=== PATIENT | female | born 1970 | race Caucasian/White ===

== ENCOUNTER → 2016-08-04 | Outpatient (CLI) | payer SELFPAY ==
--- NOTE | 2016-08-05 11:06 | MY ---
EXAMINATION: Right digital diagnostic mammogram. HISTORY: Abnormal screening. Comparison is made to previous studies dated 07/21/2016. FINDINGS: A right ML view was obtained and spot compression images obtained in the MLO and CC projections. The previously demonstrated asymmetries within the subareolar to slightly outer right breast does no t persist with spot compression. This likely represents summation artifact. Otherwise no suspicious mass or calcification identified. IMPRESSION: BI-RADS category I - negative mammogram. Continued screening according to ACR-ACS guidelines agustina castaneda. THE FALSE-NEGATIVE RATE OF MAMMOGRAM IS APPROXIMATELY 10%. MANAGEMENT OF A PALPABLE ABNORMALITY MUST BE BASED UPON CLINICAL GROUNDS. SENSITIVITY FOR DETECTION OF ABNORMALITIES IN DENSE BREASTS IS LOW. NOTE: A letter will be sent to the patient regarding findings. [facility] -- KYLE Hanna [phone] - FAX [phone]
== END ==
LOC: MW.MAM 13:38
PROVIDERS: ATTEND Obstetrics & Gynecology
DX: R92.8 Other abnormal and inconclusive findings on diagnostic imaging of breast (principal)
CPT/HCPCS: 87086; G0206

== ENCOUNTER 2017-02-10 07:01 | Emergency (ER) | payer OTHER ==
[2017-02-10] MEDS ORDERED: Sodium Chloride 0.9% 2.5 ML Syringe FLUSH PRN (07:15)
[2017-02-10] MEDS ORDERED: Ondansetron 4 MG/2 ML SDV IVPUSH ONE (07:15)
[2017-02-10] MEDS ORDERED: Sodium Chloride 0.9% 10 ML Syringe FLUSH PRN (07:15)
[2017-02-10] MEDS ORDERED: HYDROmorphone 1 MG/ML Syringe IVPUSH PRN (07:15)
[2017-02-10] MEDS ORDERED: Ketorolac 30 MG/ML SDV IVPUSH ONE (07:16)
--- NOTE | 2017-02-10 07:57 | EDM.PDOC ---
ED HPI GENERAL MEDICAL PROBLEM - General Chief Complaint: Back Pain or Injury Stated Complaint: SEVERE BACK PAIN Time Seen by Provider: 02/10/17 07:02 Source of Information: Reports: Patient History Limitations: Reports: No Limitations - History of Present Illness INITIAL COMMENTS - FREE TEXT/NARRATIVE: History of present illness: []Patient stepped up a curb this morning he felt severe sharp lower back pain. She has no radiating pain states her pain does not radiate to her legs or buttocks. He denies any numbness or tingling. She has no prior history of back pain or injury. Review of systems: As per history of present illness and below otherwise all systems reviewed and negative. Past medical history: As per history of present illness and as reviewed below otherwise noncontributory. Surgical history: As per history of present illness and as reviewed below otherwise noncontributory. Social history: No reported history of drug or alcohol abuse. Family history: As per history of present illness and as reviewed below otherwise noncontributory. Physical exam: General: Well developed, well nourished in NAD HEENT: Atraumatic, normocephalic, pupils reactive, negative for conjunctival pallor or scleral icterus, mucous membranes moist, throat clear, neck supple, nontender, trachea midline. Lungs: Clear to auscultation, breath sounds equal bilaterally, chest nontender. Heart: S1S2, regular, negative for clicks, rubs, or JVD. Abdomen: Soft, nondistended, nontender. Negative for masses or hepatosplenomegaly. Negative for costovertebral tenderness. Pelvis: Stable nontender. Genitourinary: Deferred. Rectal: Deferred. Extremities: Atraumatic, negative for cords or calf pain. Neurovascular unremarkable. Neuro: Awake, alert, oriented. Cranial nerves II through XII unremarkable. Cerebellum unremarkable. Motor and sensory unremarkable throughout. Exam nonfocal. Diagnostics: [] Therapeutics: [] Impression: [] Plan: [] Definitive disposition and diagnosis as appropriate pending reevaluation and review of above. Lower Back Pain Score (Numeric/FACES): 9 - Related Data Allergies Allergy/AdvReac Type Severity Reaction Status Date / Time No Known Allergies Allergy Verified 02/10/17 07:05 Past Medical History - Past Health History Medical/Surgical History: Denies Medical/Surgical History - Infectious Disease History Infectious Disease History: Reports: Chicken Pox Social & Family History - Family History Family Medical History: Noncontributory - Tobacco Use Smoking Status *Q: Never Smoker - Caffeine Use Caffeine Use: Reports: Coffee - Recreational Drug Use Recreational Drug Use: No ED ROS GENERAL - Review of Systems Review Of Systems: See Below (See history of present illness) ED EXAM,LOWER BACK PAIN/INJURY - Physical Exam Exam: See Below (See history of present illness) Course - Vital Signs Last Recorded V/S: Last Vital Signs Temp 36.5 C 02/10/17 07:06 Pulse 68 02/10/17 07:06 Resp 20 02/10/17 07:06 BP 133/73 02/10/17 07:06 Pulse Ox 98 02/10/17 07:06 - Orders/Labs/Meds Orders: Active Orders 24 hr Category Date Time Status Lumbar Spine 2 or 3V [CR] Stat Exams 02/10/17 07:15 Taken HYDROmorphone [Dilaudid] Med 02/10/17 07:15 Active 0.5 mg IVPUSH Q1H PRN Sodium Chloride 0.9% [Saline Flush] Med 02/10/17 07:15 Active 10 ml FLUSH ASDIRECTED PRN Sodium Chloride 0.9% [Saline Flush] Med 02/10/17 07:15 Active 2.5 ml FLUSH ASDIRECTED PRN Saline Lock Insert [OM.PC] Stat Oth 02/10/17 07:15 Ordered Medication Orders Hydromorphone HCl (Dilaudid) 0.5 mg IVPUSH Q1H PRN PRN Reason: Pain Last Admin: 02/10/17 07:39 Dose: 0.5 mg Sodium Chloride (Saline Flush) 10 ml FLUSH ASDIRECTED PRN PRN Reason: Keep Vein Open Last Admin: 02/10/17 07:39 Dose: 10 ml Sodium Chloride (Saline Flush) 2.5 ml FLUSH ASDIRECTED PRN PRN Reason: Keep Vein Open Last Admin: 02/10/17 07:39 Dose: 2.5 ml Meds: Medications Generic Name Dose Route Start Last Admin Trade Name Freq PRN Reason Stop Dose Admin Hydromorphone HCl 0.5 mg 02/10/17 07:15 02/10/17 07:39 Dilaudid IVPUSH 0.5 mg Q1H PRN Administration Pain Sodium Chloride 10 ml 02/10/17 07:15 02/10/17 07:39 Saline Flush FLUSH 10 ml ASDIRECTED PRN Administration Keep Vein Open Sodium Chloride 2.5 ml 02/10/17 07:15 02/10/17 07:39 Saline Flush FLUSH 2.5 ml ASDIRECTED PRN Administration Keep Vein Open Discontinued Medications Generic Name Dose Route Start Last Admin Trade Name Gay PRN Reason Stop Dose Admin Diazepam 2.5 mg 02/10/17 07:15 02/10/17 07:39 Valium IVPUSH 02/10/17 07:16 2.5 mg ONETIME ONE Administration Ketorolac Tromethamine 30 mg 02/10/17 07:16 02/10/17 07:37 Toradol IVPUSH 02/10/17 07:17 30 mg ONETIME ONE Administration Ondansetron HCl 4 mg 02/10/17 07:15 02/10/17 07:37 Zofran IVPUSH 02/10/17 07:16 4 mg ONETIME ONE Administration Departure - Departure Time of Disposition: 08:39 Disposition: Home, Self-Care 01 Condition: Good Clinical Impression: Severe low back pain - Discharge Information Prescriptions: Orphenadrine [Norflex] 100 mg PO BID PRN #12 tab.er PRN Reason: Spasms traMADol [Ultram] 50 mg PO Q8H PRN #16 tablet PRN Reason: Pain Referrals: PCP,None [Primary Care Provider] - Forms: ED Department Discharge Additional Instructions: The following information is given to patients seen in the emergency department who are being discharged to home. This information is to outline your options for follow-up care. We provide all patients seen in our emergency department with a follow-up referral. The need for follow-up, as well as the timing and circumstances, are variable depending upon the specifics of your emergency department visit. If you don't have a primary care physician on staff, we will provide you with a referral. We always advise you to contact your personal physician following an emergency department visit to inform them of the circumstance of the visit and for follow-up with them and/or the need for any referrals to a consulting specialist. The emergency department will also refer you to a specialist when appropriate. This referral assures that you have the opportunity for follow-up care with a specialist. All of these measure are taken in an effort to provide you with optimal care, which includes your follow-up. Under all circumstances we always encourage you to contact your private physician who remains a resource for coordinating your care. When calling for follow-up care, please make the office aware that this follow-up is from your recent emergency room visit. If for any reason you are refused follow-up, please contact the [facility] Emergency Department at and asked to speak to the emergency department charge nurse. Follow-up with them as directed by your workplace. Ice pack 20 minutes at a time return to ER if symptoms worsen or change or Follow-up with a primary care [facility] [address] [place] [address] - My Orders Last 24 Hours: My Active Orders 02/10/17 07:15 Lumbar Spine 2 or 3V [CR] Stat HYDROmorphone [Dilaudid] 0.5 mg IVPUSH Q1H PRN Sodium Chloride 0.9% [Saline Flush] 10 ml FLUSH ASDIRECTED PRN Sodium Chloride 0.9% [Saline Flush] 2.5 ml FLUSH ASDIRECTED PRN Saline Lock Insert [OM.PC] Stat - Assessment/Plan Last 24 Hours: My Active Orders 02/10/17 07:15 Lumbar Spine 2 or 3V [CR] Stat HYDROmorphone [Dilaudid] 0.5 mg IVPUSH Q1H PRN Sodium Chloride 0.9% [Saline Flush] 10 ml FLUSH ASDIRECTED PRN Sodium Chloride 0.9% [Saline Flush] 2.5 ml FLUSH ASDIRECTED PRN Saline Lock Insert [OM.PC] Stat
[2017-02-10 09:00] VITALS: BP 120/80
--- NOTE | 2017-02-10 14:23 | CR ---
EXAM DATE: 02/10/17 PATIENT'S AGE: 46 Patient: CEFERINO TAYLOR Facility: [place], [place] Site . Site : 1970 Study: XRay Spine Lumbar [id number]/27/2017 8:12:04 AM Ordering Physician: Salo Castellon Final Report: INDICATION: pain FINDINGS: Three views of the lumbar spine show normal height and alignment of the lumbar vertebral bodies. No evidence of acute fracture or dislocation. No other bony or soft tissue abnormalities identified. Dictated by Darian Connelly MD @ 02/10/2017 8:33:39 AM Dictated by: Darian Connelly MD @ 02/10/2017 08:42:50 (Electronic Signature) Report Signed by Proxy. [facility]
== END 2017-02-10 09:03 | disposition home or self-care (01) ==
LOC: MW.ED 07:01
DX: M54.5 Low back pain (principal); W22.8XXA Striking against or struck by other objects, initial encounter
CPT/HCPCS: 72100; 96374; 96375; 99283; J1885; J2405; J3360; 99282; J1170